=== PATIENT | male | born 1940 | race Caucasian/White ===

== ENCOUNTER → 2020-09-27 | Outpatient (CLI) | payer MEDICARE | END | disposition home or self-care (01) | LOC: SHCH 10:14 | PROVIDERS: ATTEND Internal Medicine Cardiovascular Disease | DX: I87.2 Venous insufficiency (chronic) (peripheral) (principal); I70.201 Unspecified atherosclerosis of native arteries of extremities, right leg | CPT/HCPCS: 93971 ==

== ENCOUNTER 2020-10-05 10:24 | Inpatient (IN) | payer MEDICARE ==
[~2020-10-05] VITALS: Ht 167.6 cm; Wt 83.9 kg
[2020-10-05 04:45] VITALS: BP 159/96
[2020-10-05 10:55] LABS: BASOPHILS % (AUTO) 0.4 % (0.0-5.0); EOSINOPHILS % (AUTO) 0.8 % (0.0-8.0); HEMATOCRIT 35.5 % (42-54); LYMPHOCYTES % (AUTO) 10.3 % (21.0-51.0); MEAN CORPUSCULAR HEMOGLOBIN 27.3 pg (27.0-33.0); MEAN CORPUSCULAR HGB CONC 32.1 g/dL (32.0-36.0); MEAN CORPUSCULAR VOLUME 84.9 fL (79-99); MONOCYTES % (AUTO) 11.6 % (3.0-13.0); NEUTROPHILS % (AUTO) 76.4 % (40.0-77.0); PLATELET COUNT (AUTO) 359 K/uL (130-400); RED BLOOD CELL COUNT(AUTO) 4.18 MIL/uL (4.50-6.20); RED CELL DISTRIBUTION WIDTH 14.1 % (11.0-15.5)
[2020-10-05 11:10] LABS: CREATININE 1.1 mg/dL (0.5-1.5); POTASSIUM 4.3 mmol/L (3.5-5.1)
[2020-10-05 11:14] LABS: ALBUMIN 2.7 g/dL (3.5-5.0); BILIRUBIN,TOTAL 0.3 mg/dL (0.2-1.0); TOTAL PROTEIN, SERUM 7.3 g/dL (6.0-8.3)
[2020-10-05 11:40] LABS: INR 1.04 (0.85-1.15); PROTHROMBIN TIME 11.1 SEC (9.6-11.6)
[2020-10-05 11:42] LABS: PARTIAL THROMBOPLASTIN TIME 29.3 SEC (26.3-35.5)
[2020-10-05 12:38] LABS: APPEARANCE,URINE Clear (CLEAR); BILIRUBIN,URINE Negative (NEGATIVE); COLOR,URINE Yellow (YELLOW); GLUCOSE, URINE (UA) Negative (NEGATIVE); KETONES,URINE Negative (NEGATIVE); LEUKOCYTE ESTERASE ,URINE Negative (NEGATIVE); NITRATE,URINE Negative (NEGATIVE); OCCULT BLOOD,URINE Negative (NEGATIVE); PH,URINE 5.5 (5.0-8.0); PROTEIN,URINE Negative (NEGATIVE)
[2020-10-05 14:52] LABS: INR 1.07 (0.85-1.15); PROTHROMBIN TIME 11.4 SEC (9.6-11.6)
[2020-10-05] MEDS ORDERED: CLON0.1T PO (18:53)
[2020-10-05] MEDS ORDERED: CIME400T PO (18:53)
[2020-10-05] MEDS ORDERED: HYDR10 PO (18:53)
[2020-10-05] MEDS ORDERED: TRIA1CAP6 PO (18:53)
[2020-10-05] MEDS ORDERED: DILT240T11 PO (18:53)
[2020-10-05] MEDS ORDERED: PANT40GR PO (18:53)
[2020-10-05] MEDS ORDERED: AEC81 PO (18:53)
[2020-10-05] MEDS ORDERED: LOSA50TA64 PO (18:53)
[2020-10-05] MEDS: ACETAMINOPHEN WITH CODEINE 1 TAB TAB PO PRN (19:01)
[2020-10-05 20:46] VITALS: BP 152/78
[2020-10-05] MEDS: DILTIAZEM 120MG SR CAP PO SCH (21:00)
[2020-10-05] MEDS: HYDRALAZINE HCL 10 MG TABLET PO SCH (21:00)
[2020-10-05] MEDS ORDERED: CEFAZOLIN SODIUM 1 GM VIAL IVP PRN (21:30)
[2020-10-06] VITALS (17 sets, daily range): BP systolic 102–157; BP diastolic 51–78
[2020-10-06] MEDS: ACETAMINOPHEN WITH CODEINE 1 TAB TAB PO PRN (01:13)
[2020-10-06] MEDS: LOSARTAN 50 MG TABLET PO SCH (05:30)
[2020-10-06] MEDS: HYDRALAZINE HCL 10 MG TABLET PO SCH ×2 (05:30→21:00)
[2020-10-06] MEDS ORDERED: LACTATED RINGERS 1000ML 1,000 ML IV ONE (08:15)
[2020-10-06] MEDS ORDERED: ASPIRIN 81MG CHEW TAB PO SCH (09:00)
[2020-10-06] MEDS: TRIAMTEREN/HCTZ 37.5/25 MG 1 TAB TAB PO SCH (09:00)
[2020-10-06] MEDS: PANTOPRAZOLE 40 MG TAB DR PO SCH (09:00)
[2020-10-06 09:37] LABS: BASOPHILS % (AUTO) 0.4 % (0.0-5.0); HEMATOCRIT 33.9 % (42-54); LYMPHOCYTES % (AUTO) 8.9 % (21.0-51.0); MEAN CORPUSCULAR HEMOGLOBIN 26.6 pg (27.0-33.0); MEAN CORPUSCULAR HGB CONC 31.9 g/dL (32.0-36.0); MEAN CORPUSCULAR VOLUME 83.5 fL (79-99); MONOCYTES % (AUTO) 10.8 % (3.0-13.0); NEUTROPHILS % (AUTO) 78.4 % (40.0-77.0); PLATELET COUNT (AUTO) 315 K/uL (130-400); RED BLOOD CELL COUNT(AUTO) 4.06 MIL/uL (4.50-6.20); RED CELL DISTRIBUTION WIDTH 14.2 % (11.0-15.5); WHITE BLOOD COUNT (AUTO) 10.4 K/uL (4.8-10.8)
[2020-10-06] MEDS ORDERED: MIDAZOLAM HCL 1 MG/ML 2ML VIAL ONE (09:59)
[2020-10-06] MEDS ORDERED: DEXAMETHASONE SOD PHOSPHATE 10MG/ML 1ML VIAL ONE (09:59)
[2020-10-06] MEDS ORDERED: SUCCINYLCHOLINE 200MG/10ML SYR ONE ×2 (09:59→10:03)
[2020-10-06] MEDS ORDERED: LIDOCAINE PF 100MG/5ML (2%) SYRINGE 5ML ONE (09:59)
[2020-10-06] MEDS ORDERED: ONDANSETRON 4MG INJ ONE (10:00)
[2020-10-06] MEDS ORDERED: FENTANYL CITRATE PF 50 MCG/1 ML 2ML VIAL ONE ×2 (10:00→11:15)
[2020-10-06] MEDS ORDERED: PROPOFOL 10 MG/ML 20ML VIAL IV ONE ×2 (10:00→12:46)
[2020-10-06] MEDS ORDERED: MEPERIDINE-PF 25 MG/ML SYG ONE ×2 (10:01→11:12)
[2020-10-06] MEDS ORDERED: ROCURONIUM 10MG/1ML SYR 10 MG/ML ML ONE (10:03)
[2020-10-06] MEDS ORDERED: CEFAZOLIN SODIUM 1 GM VIAL ONE (10:20)
[2020-10-06] MEDS ORDERED: EPHEDRINE SULFATE 50 MG/ML AMPULE ONE (10:47)
[2020-10-06] MEDS ORDERED: TRAMADOL HCL 50 MG TABLET PO PRN (13:15)
[2020-10-06] MEDS ORDERED: TEMAZEPAM 15 MG CAPSULE PO PRN (13:15)
[2020-10-06] MEDS ORDERED: POTASSIUM CHLORIDE 20MEQ/100ML 100 ML IV PRN (13:15)
[2020-10-06] MEDS ORDERED: CALCIUM CARB 500MG PO PRN (13:15)
[2020-10-06] MEDS ORDERED: OXYCODONE HCL 5 MG TAB PO PRN ×2 (13:15)
[2020-10-06] MEDS ORDERED: LIDOCAINE HCL-MPF 1% 2ML VIAL IV PRN (13:15)
[2020-10-06] MEDS ORDERED: DiphenhydrAMINE HCL 50 MG/ML VIAL IVP PRN (13:15)
[2020-10-06] MEDS ORDERED: KCL 20 MEQ ERTAB PO PRN (13:15)
[2020-10-06] MEDS ORDERED: FERROUS FUMARATE 324 MG TABLET PO PRN (13:15)
[2020-10-06] MEDS ORDERED: KETOROLAC 15MG/ML VIAL (15MG/ML) IV PRN (13:15)
[2020-10-06] MEDS ORDERED: ONDANSETRON 4MG INJ IVP PRN (13:15)
[2020-10-06] MEDS ORDERED: POTASSIUM CHLORIDE 10% ELIXIR 20 MEQ/15 ML UDCUP PO PRN (13:15)
[2020-10-06] MEDS ORDERED: DIPHENHYDRAMINE HCL 25 MG CAPSULE PO PRN (13:15)
[2020-10-06 13:40] LABS: ALBUMIN 2.5 g/dL (3.5-5.0); BILIRUBIN,DIRECT 0.1 mg/dL (0.0-0.3); BILIRUBIN,TOTAL 0.6 mg/dL (0.2-1.0); TOTAL PROTEIN, SERUM 6.7 g/dL (6.0-8.3)
[2020-10-06] MEDS: DILTIAZEM 120MG SR CAP PO SCH (21:00)
[2020-10-06] MEDS: 0.9%NACL 1000ML 1,000 ML IV SCH (22:29)
[2020-10-06] MEDS: CEFAZOLIN SODIUM 1 GM VIAL IVP SCH (22:29)
[2020-10-06] MEDS: TAMSULOSIN HCL 0.4 MG CAP.ER.24H PO SCH (22:30)
[2020-10-06] MEDS: ACETAMINOPHEN 500 MG TABLET PO SCH (22:30)
[2020-10-06] MEDS: PREGABALIN 25 MG CAP PO SCH (22:31)
[2020-10-06] MEDS: CELECOXIB 200 MG CAP PO SCH (22:31)
[2020-10-06] MEDS: FAMOTIDINE 20MG TAB PO SCH (22:35)
[2020-10-07] VITALS (7 sets, daily range): BP systolic 108–129; BP diastolic 60–70
[2020-10-07 04:04] LABS: HEMATOCRIT 28.9 % (42-54); MEAN CORPUSCULAR HEMOGLOBIN 26.7 pg (27.0-33.0); MEAN CORPUSCULAR HGB CONC 31.5 g/dL (32.0-36.0); MEAN CORPUSCULAR VOLUME 84.8 fL (79-99); RED BLOOD CELL COUNT(AUTO) 3.41 MIL/uL (4.50-6.20); RED CELL DISTRIBUTION WIDTH 14.2 % (11.0-15.5); WHITE BLOOD COUNT (AUTO) 10.7 K/uL (4.8-10.8)
[2020-10-07 04:11] LABS: CREATININE 0.9 mg/dL (0.5-1.5); POTASSIUM 4.3 mmol/L (3.5-5.1)
[2020-10-07] MEDS: CEFAZOLIN SODIUM 1 GM VIAL IVP SCH ×3 (04:28→21:00)
[2020-10-07] MEDS: ACETAMINOPHEN 500 MG TABLET PO SCH ×2 (05:15→13:15)
[2020-10-07] MEDS: LOSARTAN 50 MG TABLET PO SCH (09:00)
[2020-10-07] MEDS: HYDRALAZINE HCL 10 MG TABLET PO SCH ×2 (09:00→20:58)
[2020-10-07] MEDS: 0.9%NACL 1000ML 1,000 ML IV SCH (09:15)
[2020-10-07] MEDS: CELECOXIB 200 MG CAP PO SCH ×2 (09:44→20:59)
[2020-10-07] MEDS: TRIAMTEREN/HCTZ 37.5/25 MG 1 TAB TAB PO SCH (09:45)
[2020-10-07] MEDS: FAMOTIDINE 20MG TAB PO SCH ×2 (09:46→20:59)
[2020-10-07] MEDS: PANTOPRAZOLE 40 MG TAB DR PO SCH (09:46)
[2020-10-07] MEDS: PREGABALIN 25 MG CAP PO SCH ×2 (09:46→20:59)
[2020-10-07] MEDS: POLYETHYLENE GLYCOL 3350 17 GM POWD.PACK PO SCH (09:47)
[2020-10-07] MEDS: ENOXAPARIN SODIUM 40 MG/0.4 ML SYRINGE SQ SCH (09:50)
[2020-10-07] MEDS: PSYLLIUM SEED 1 EACH PACKET PO SCH (12:00)
[2020-10-07] MEDS ORDERED: ACETAMINOPHEN 500 MG TABLET PO PRN (16:30)
[2020-10-07] MEDS: DILTIAZEM 120MG SR CAP PO SCH (20:58)
[2020-10-07] MEDS: TAMSULOSIN HCL 0.4 MG CAP.ER.24H PO SCH (20:59)
[2020-10-08 04:00] LABS: HEMATOCRIT 27.7 % (42-54); MEAN CORPUSCULAR HEMOGLOBIN 26.4 pg (27.0-33.0); MEAN CORPUSCULAR HGB CONC 31.4 g/dL (32.0-36.0); MEAN CORPUSCULAR VOLUME 83.9 fL (79-99); RED BLOOD CELL COUNT(AUTO) 3.3 MIL/uL (4.50-6.20); RED CELL DISTRIBUTION WIDTH 14.2 % (11.0-15.5); WHITE BLOOD COUNT (AUTO) 10.9 K/uL (4.8-10.8)
[2020-10-08 04:13] LABS: POTASSIUM 4.2 mmol/L (3.5-5.1)
[2020-10-08 04:15] VITALS: BP 126/74
[2020-10-08] MEDS: CEFAZOLIN SODIUM 1 GM VIAL IVP SCH ×2 (05:05→13:46)
[2020-10-08 08:00] VITALS: BP 105/53
[2020-10-08] MEDS: TRIAMTEREN/HCTZ 37.5/25 MG 1 TAB TAB PO SCH (09:00)
[2020-10-08] MEDS: LOSARTAN 50 MG TABLET PO SCH (09:00)
[2020-10-08] MEDS: HYDRALAZINE HCL 10 MG TABLET PO SCH (09:00)
[2020-10-08] MEDS: PANTOPRAZOLE 40 MG TAB DR PO SCH (09:28)
[2020-10-08] MEDS: PREGABALIN 25 MG CAP PO SCH (09:28)
[2020-10-08] MEDS: CELECOXIB 200 MG CAP PO SCH (09:28)
[2020-10-08] MEDS: POLYETHYLENE GLYCOL 3350 17 GM POWD.PACK PO SCH (09:28)
[2020-10-08] MEDS: FAMOTIDINE 20MG TAB PO SCH (09:29)
[2020-10-08] MEDS: ENOXAPARIN SODIUM 40 MG/0.4 ML SYRINGE SQ SCH (09:29)
[2020-10-08] MEDS: PSYLLIUM SEED 1 EACH PACKET PO SCH (11:44)
[2020-10-08 12:53] VITALS: BP 130/66
[2020-10-08] MEDS ORDERED: BISACODYL 5 MG TABLET.DR PO PRN (13:15)
[2020-10-08] MEDS ORDERED: ACET-2743 PO (16:40)
[2020-10-08] MEDS ORDERED: HYDR-4457 PO (16:40)
[2020-10-08 17:19] VITALS: BP 139/68
[2020-10-09] MEDS ORDERED: BISACODYL 10 MG SUPP.RECT RC PRN (13:15)
== END 2020-10-08 19:30 | disposition home health service (06) | DRG 502 ==
LOC: EDH 10:24 → EDHIP 12:45 → 4CH 17:24
PROVIDERS: ADMIT Internal Medicine; ATTEND Internal Medicine
PROC: 0KCS0ZZ Extirpation of Matter from Right Lower Leg Muscle, Open Approach (ICD-10-PCS; principal; 2020-10-06 11:10)
PROC: 0JBL0ZX Excision of Right Upper Leg Subcutaneous Tissue and Fascia, Open Approach, Diagnostic (ICD-10-PCS; 2020-10-06 11:10)
DX: C49.21 Malignant neoplasm of connective and soft tissue of right lower limb, including hip (principal); S70.11XA Contusion of right thigh, initial encounter; I87.2 Venous insufficiency (chronic) (peripheral); M19.90 Unspecified osteoarthritis, unspecified site; K21.9 Gastro-esophageal reflux disease without esophagitis; D72.829 Elevated white blood cell count, unspecified; E78.5 Hyperlipidemia, unspecified; I10 Essential (primary) hypertension; X58.XXXA Exposure to other specified factors, initial encounter; I83.90 Asymptomatic varicose veins of unspecified lower extremity; I25.10 Atherosclerotic heart disease of native coronary artery without angina pectoris; Z79.82 Long term (current) use of aspirin; Z79.899 Other long term (current) drug therapy; Z83.3 Family history of diabetes mellitus; Z82.49 Family history of ischemic heart disease and other diseases of the circulatory system; Y93.89 Activity, other specified; Y92.89 Other specified places as the place of occurrence of the external cause; Y99.8 Other external cause status; Z20.822 Contact with and (suspected) exposure to COVID-19
CPT/HCPCS: 36415; 71045; 71250; 73552; 73700; 74176; 78306; 80048; 80053; 80076; 81003; 83880; 84484; 85025; 85027; 85610; 85730; 86850; 86900; 86901; 87426; 88307; 88331; 88332; 88341; 88342; 93005; 93971; 97039; A9503; G0378; J0330; J0690; J1100; J1650; J2001; J2175; J2250; J2405; J2704; J3010; J3490; J7030; J7120; U0003

== ENCOUNTER → 2022-09-27 | Outpatient (CLI) | payer MEDICARE ==
[~2022-09-27] MED LIST: ACET-2743 PO; AEC81 PO; CIME400T PO; CLON0.1T PO; DILT240T11 PO; HYDR-4457 PO; HYDR10 PO; LOSA50TA64 PO; PANT40GR PO; TRIA1CAP87 PO
== END | disposition home or self-care (01) ==
LOC: SHCH 09:38
PROVIDERS: ATTEND Internal Medicine Cardiovascular Disease
DX: I87.2 Venous insufficiency (chronic) (peripheral) (principal)
CPT/HCPCS: 93970

== ENCOUNTER → 2024-10-27 | Outpatient (CLI) | payer MEDICARE ==
--- NOTE | 2024-10-29 07:30 | HMCSR ---
APPROVED REPORT Right Lower Extremity Venous Study for DVT. Indications S/P Varithena RGSV 10-24-24 Vein Imaging CFV (R): Normal flow, augmentation and compression. No evidence of DVT. SFJ (R): Normal flow, augmentation and compression. No evidence of DVT. FEM (R): Normal flow, augmentation and compression. No evidence of DVT. POP (R): Normal flow, augmentation and compression. No evidence of DVT. DFV (R): Normal flow, augmentation and compression. No evidence of DVT. PTV (R): Normal flow, augmentation and compression. No evidence of DVT. Peroneals (R): Normal flow, augmentation and compression. No evidence of DVT. Technologist Impression DEEP VEINS OF THE RLE APPEAR PATENT AND COMPRESSIBLE WITHOUT THROMBUS. RGSV IS CLOSE FROM PROX THIGH TO DISTAL CALF. ACCESORY VEIN AT KNEE TO MID CALF KNEE 4.4MM 989 MS MID CALF 3.1MM 0.0 MS Conclusion No DVT Successful ablation Conclusion No DVT Successful ablation
== END | disposition home or self-care (01) ==
LOC: SHCH 09:20
PROVIDERS: ATTEND Internal Medicine Cardiovascular Disease
DX: Z09 Encounter for follow-up examination after completed treatment for conditions other than malignant neoplasm (principal); I87.2 Venous insufficiency (chronic) (peripheral)
CPT/HCPCS: 93971